=== PATIENT | female | born 1970 | race American Indian/Alaskan Native ===

== ENCOUNTER 2016-06-09 18:43 | Emergency (ER) | payer SELFPAY ==
[2016-06-09 19:44] VITALS: BP 118/71
[2016-06-09] MEDS ORDERED: ATROVENT IH ONE (19:55)
[2016-06-09] MEDS ORDERED: DELTASONE PO ONE (19:55)
[2016-06-09] MEDS ORDERED: PROVENTIL IH ONE (19:55)
[2016-06-09] MEDS ORDERED: BENADRYL PO ONE (19:56)
[2016-06-09] MEDS ORDERED: PEPCID PO ONE (19:56)
--- NOTE | 2016-06-09 20:01 | Emergency Department Report ---
HPI - General Chief Complaint: Dyspnea/Respdistress Time Seen by Provider: 06/09/16 19:48 - HPI HPI: Room 7 The patient is a 46-year-old female presenting with a chief complaint of shortness of breath. The patient states she was in a customer's home approximately noon today for 1 hour when she began developing shortness of breath and a cough productive of clear sputum. Patient states she also had rhinorrhea. The patient states she went home but symptoms did not improve so she came to the ED for treatment. The patient states little over a month ago she had a similar episode at the same customer's house. Patient Was states she does not short of breath. Patient denies any history of fever or sick contacts. Patient denies itching Location: Lungs Duration: [see above] Quality: Shortness of Breath Severity: Moderate Modifying factors: [see above] Context: [see above] Mode of transportation: [not driving] ED Past Medical Hx - Past Medical History Previous Medical History?: No - Surgical History Past Surgical History?: No Additional Surgical History: Bilateral tubal ligation - Family History Family history: no significant - Social History Smoking Status: Never Smoker Substance Use Type: Alcohol (occasional), Non Opiate Pain, Prescribed - Medications Home Medications: Home Medications Medication Instructions Recorded Confirmed Last Taken Type Azithromycin [Zithromax Z-BESSIE] 250 mg PO DAILY #6 tablet 12/31/15 06/09/1606/09 Rx ALBUTEROL Inhaler [ProAir HFA 1 puff IH Q4H #1 inha 06/09/16 Unknown Rx Inhaler] Famotidine [Pepcid] 20 mg PO BID #6 tablet 06/09/16 Unknown Rx Prednisone [predniSONE 10 mg 10 mg PO .TAPER #1 tab.ds.pk 06/09/16 Unknown Rx (6-Day Pack, 21 Tabs)] diphenhydrAMINE [Benadryl CAP] 50 mg PO Q6HR #24 capsule 06/09/16 Unknown Rx ED Review of Systems ROS: Stated complaint: FATMATA Other details as noted in HPI Comment: All other systems reviewed and negative Constitutional: denies: fever Eyes: denies: eye pain, eye discharge, vision change ENT: other (rhinorrhea) Respiratory: cough, shortness of breath Cardiovascular: denies: chest pain, palpitations Endocrine: no symptoms reported Gastrointestinal: denies: abdominal pain, nausea, diarrhea Genitourinary: denies: urgency, dysuria, discharge Musculoskeletal: denies: back pain, joint swelling, arthralgia Skin: denies: rash, lesions Neurological: denies: headache, weakness, paresthesias Psychiatric: denies: anxiety, depression Hematological/Lymphatic: denies: easy bleeding, easy bruising Physical Exam - Physical Exam Vital Signs: Vital Signs 06/09/16 19:31 Temperature 97.8 F Pulse Rate 106 H Respiratory 18 Rate Blood Pressure 118/71 Blood Pressure 118/71 [Left] O2 Sat by Pulse 97 Oximetry Physical Exam: GENERAL: The patient is well-developed well-nourished female lying on stretcher not appearing to be in acute distress. [] HEENT: Normocephalic. Atraumatic. Extraocular motions are intact. Patient has moist mucous membranes. No stridor NECK: Supple. No stridor CHEST/LUNGS: Trace expiratory wheezing auscultated. There is no respiratory distress noted. HEART/CARDIOVASCULAR: Regular. There is no tachycardia. There is no gallop rub or murmur. SKIN: There is no rash. There is no edema. There is no diaphoresis. NEURO: The patient is awake, alert, and oriented. The patient is cooperative. The patient has normal speech MUSCULOSKELETAL: There is no evidence of acute injury. ED Course Vital Signs 06/09/16 19:31 Temperature 97.8 F Pulse Rate 106 H Respiratory 18 Rate Blood Pressure 118/71 Blood Pressure 118/71 [Left] O2 Sat by Pulse 97 Oximetry - Reevaluation(s) Reevaluation #1: 06/09/16 21:06 Patient states she feels improved ED Medical Decision Making - Differential Diagnosis reactive airway disease Critical care attestation.: If time is entered above; I have spent that time in minutes in the direct care of this critically ill patient, excluding procedure time. ED Disposition Clinical Impression: Reactive airway disease, Shortness of breath Disposition: DISCHARGED TO HOME OR SELFCARE Is pt being admited?: No Does the pt Need Aspirin: No Condition: Stable Instructions: Reactive Airways Disease (ED) Additional Instructions: Return to the emergency department immediately should you develop worsening symptoms, fever, inability to tolerate food or liquid or any other concerns. Prescriptions: ALBUTEROL Inhaler [ProAir HFA Inhaler] 1 puff IH Q4H #1 inha Famotidine [Pepcid] 20 mg PO BID #6 tablet Prednisone [predniSONE 10 mg (6-Day Pack, 21 Tabs)] 10 mg PO .TAPER #1 tab.ds.pk diphenhydrAMINE [Benadryl CAP] 50 mg PO Q6HR #24 capsule Referrals: PRIMARY CARE, [Primary Care Provider] - 3-5 Days CLAUDIA MARTINEZ MD [Staff Physician] - 3-5 Days (Dr Martinez is an network support administrator. Please follow with her further evaluation) Time of Disposition: 21:05
== END 2016-06-09 21:53 | disposition home or self-care (01) ==
LOC: ED 18:43
DX: J45.909 Unspecified asthma, uncomplicated (principal); R06.02 Shortness of breath
CPT/HCPCS: 94640; 99283; J7512

== ENCOUNTER 2016-09-04 10:11 | Emergency (ER) | payer SELFPAY ==
[2016-09-04 11:50] VITALS: BP 152/97
== END 2016-09-04 21:50 ==
LOC: ED 10:11
DX: Z76.0 Encounter for issue of repeat prescription (principal); Z53.21 Procedure and treatment not carried out due to patient leaving prior to being seen by health care provider

== ENCOUNTER 2017-07-14 04:19 | Emergency (ER) | payer SELFPAY | END 2017-07-14 04:20 | disposition left against medical advice (07) | LOC: ED 04:19 | DX: J45.909 Unspecified asthma, uncomplicated (principal); Z53.21 Procedure and treatment not carried out due to patient leaving prior to being seen by health care provider ==

== ENCOUNTER 2017-09-24 00:29 | Emergency (ER) | payer SELFPAY ==
[2017-09-24] MEDS ORDERED: DUONEB *Not for PRN Use IH ONE ×2 (00:34→00:59)
[2017-09-24 00:59] VITALS: BP 142/78
--- NOTE | 2017-09-24 03:40 | Emergency Department Report ---
Upper Respiratory HPI - HPI Chief Complaint: Adult Asthma Stated Complaint: ASTHMA Time Seen by Provider: 09/24/17 03:33 URI Symptoms: Rhinorrhea: Yes, Sore Throat: No, Ear Pain: No, Cough: Yes, Shortness of Breath: Yes, Sick Contacts: No, Unable to Take Fluids: No, Urine Output Abnormal: No, Listless Behavior: No - Home Meds and Allergies Home Medications: Previous Rx's Medication Instructions Recorded Last Taken Type Azithromycin [Zithromax Z-BESSIE] 250 mg PO DAILY #6 tablet 12/31/15 06/09/16 Rx ALBUTEROL Inhaler [ProAir HFA 1 puff IH Q4H #1 inha 06/09/16 Unknown Rx Inhaler] Famotidine [Pepcid] 20 mg PO BID #6 tablet 06/09/16 Unknown Rx Prednisone [predniSONE 10 mg 10 mg PO .TAPER #1 tab.ds.pk 06/09/16 Unknown Rx (6-Day Pack, 21 Tabs)] diphenhydrAMINE [Benadryl CAP] 50 mg PO Q6HR #24 capsule 06/09/16 Unknown Rx ALBUTEROL Inhaler [ProAir HFA 2 puff IH QID PRN #1 inhalation 09/24/17 Unknown Rx Inhaler] Azithromycin [Zithromax Z-BESSIE] 250 mg PO DAILY #6 tab 09/24/17 Unknown Rx predniSONE [Deltasone] 40 mg PO QDAY #10 tab 09/24/17 Unknown Rx Allergies/Adverse Reactions: Allergies Allergy/AdvReac Type Severity Reaction Status Date / Time No Known Allergies Allergy Verified 09/04/16 11:45 ED Review of Systems ROS: Stated complaint: ASTHMA Other details as noted in HPI Constitutional: denies: chills, fever Eyes: denies: eye pain, eye discharge, vision change ENT: congestion. denies: ear pain, throat pain Respiratory: cough, shortness of breath, wheezing Cardiovascular: denies: chest pain, palpitations Endocrine: no symptoms reported Gastrointestinal: denies: abdominal pain, nausea, diarrhea Genitourinary: denies: urgency, dysuria, discharge Musculoskeletal: denies: back pain, joint swelling, arthralgia Skin: denies: rash, lesions Neurological: denies: headache, weakness, paresthesias Psychiatric: denies: anxiety, depression Hematological/Lymphatic: denies: easy bleeding, easy bruising ED Past Medical Hx - Past Medical History Hx Asthma: Yes - Surgical History Additional Surgical History: Bilateral tubal ligation - Social History Smoking Status: Never Smoker Substance Use Type: None - Medications Home Medications: Home Medications Medication Instructions Recorded Confirmed Last Taken Type Azithromycin [Zithromax Z-BESSIE] 250 mg PO DAILY #6 tablet 12/31/15 06/09/1606/09 Rx ALBUTEROL Inhaler [ProAir HFA 1 puff IH Q4H #1 inha 06/09/16 Unknown Rx Inhaler] Famotidine [Pepcid] 20 mg PO BID #6 tablet 06/09/16 Unknown Rx Prednisone [predniSONE 10 mg 10 mg PO .TAPER #1 tab.ds.pk 06/09/16 Unknown Rx (6-Day Pack, 21 Tabs)] diphenhydrAMINE [Benadryl CAP] 50 mg PO Q6HR #24 capsule 06/09/16 Unknown Rx ALBUTEROL Inhaler [ProAir HFA 2 puff IH QID PRN #1 inhalation 09/24/17 Unknown Rx Inhaler] Azithromycin [Zithromax Z-BESSIE] 250 mg PO DAILY #6 tab 09/24/17 Unknown Rx predniSONE [Deltasone] 40 mg PO QDAY #10 tab 09/24/17 Unknown Rx ED Bronchiolitis Physical Exam - Exam General: Vital signs noted. No distress. Alert and acting appropriately. HEENT: Yes Pharyngeal Erythema, Yes Rhinorrhea, No Conjuctival Injection, No Dry Mucous Membranes Ear: Neither TM Bulge, Neither TM Erythema, Neither EAC Discharge Neck: No Adenopathy, No Rigidity Lungs: Yes Good Air Exchange, Yes Wheezes, Yes Cough, No Clear Lung Sounds, No Stridor, No Nasal Flaring, No Retractions, No Use of Accessory Muscles Heart: Yes Regular, No Murmur Abdomen: Yes Normal Bowel Sounds, No Tenderness, No Peritoneal Signs Skin: No Rash, No Eczema Neurologic: Alert and oriented, no deficits. Musculoskeletal: Unremarkable. ED Physical Exam - General Limitations: No Limitations General appearance: alert, in no apparent distress - Head Head exam: Present: atraumatic, normocephalic - Eye Eye exam: Present: normal appearance - ENT ENT exam: Present: mucous membranes moist - Neck Neck exam: Present: normal inspection, full ROM. Absent: tenderness, lymphadenopathy, thyromegaly - Respiratory Respiratory exam: Present: normal lung sounds bilaterally, wheezes (mild exp ). Absent: respiratory distress, rales, rhonchi, stridor, chest wall tenderness - Cardiovascular Cardiovascular Exam: Present: regular rate, normal rhythm. Absent: systolic murmur, diastolic murmur, rubs, gallop - GI/Abdominal GI/Abdominal exam: Present: soft, normal bowel sounds. Absent: distended, tenderness, guarding, rebound, rigid, organomegaly, mass, bruit, pulsatile mass , hernia - Rectal Rectal exam: Present: deferred - Extremities Exam Extremities exam: Present: normal inspection - Back Exam Back exam: Present: normal inspection - Neurological Exam Neurological exam: Present: alert, oriented X3 - Psychiatric Psychiatric exam: Present: normal affect, normal mood - Skin Skin exam: Present: warm, dry, intact, normal color. Absent: rash ED Course Vital Signs 09/24/17 00:52 Temperature 99.1 F Pulse Rate 104 H Respiratory 18 Rate Blood Pressure 142/78 O2 Sat by Pulse 96 Oximetry ED Medical Decision Making - Medical Decision Making Patient is a 47-year-old female with history of asthma patient states shortness of breath and wheezing 3 days however out of albuterol inhaler patient states all symptoms are relieved after neb treatment given in the ED exam patient and O 3 patient appears nontoxic well-hydrated well- nourished accessory muscle use patient has ambulated ED and return room without increase shortness of breath O2 sat is 96% on room air plan at this time DC'd to home in stable condition refill albuterol inhaler short burst of prednisone and Z-Bessie follow with PCP in 2-3 days patient will return to ED if symptoms worsen patient verbalizes understanding and agreement with discharge plan to home Critical care attestation.: If time is entered above; I have spent that time in minutes in the direct care of this critically ill patient, excluding procedure time. ED Disposition Clinical Impression: Bronchitis Asthma Qualifiers: Asthma severity: mild Asthma persistence: intermittent Asthma complication type : with acute exacerbation Qualified Code(s): J45.21 - Mild intermittent asthma with (acute) exacerbation Disposition: DC- TO HOME OR SELFCARE Is pt being admited?: No Does the pt Need Aspirin: No Condition: Good Instructions: Chronic Bronchitis (ED), Asthma (ED) Prescriptions: ALBUTEROL Inhaler [ProAir HFA Inhaler] 2 puff IH QID PRN #1 inhalation PRN Reason: Shortness Of Breath Azithromycin [Zithromax Z-BESSIE] 250 mg PO DAILY #6 tab predniSONE [Deltasone] 40 mg PO QDAY #10 tab Referrals: [facility] [Outside] - 3-5 Days Forms: Work/School Release Form(ED) Time of Disposition: 03:41
== END 2017-09-24 03:50 | disposition home or self-care (01) ==
LOC: ED 00:29
DX: J45.21 Mild intermittent asthma with (acute) exacerbation (principal); F17.200 Nicotine dependence, unspecified, uncomplicated; Z98.51 Tubal ligation status
CPT/HCPCS: 94640; 96372; 99282; J2930

== ENCOUNTER 2018-07-30 09:54 | Emergency (ER) | payer BC ==
--- NOTE | 2018-07-30 13:11 | XRay Report ---
AP AND LATERAL SOFT TISSUES OF THE NECK: History: Neck pain, rule out foreign body. The contour of the upper airway appears within normal limits. The epiglottis is not enlarged. No prevertebral soft tissue swelling is apparent. No mass density or foreign body is evident. IMPRESSION: Unremarkable exam. No radiopaque foreign body is identified in the upper aerodigestive tract.
--- NOTE | 2018-07-30 13:11 | XRay Report ---
ROUTINE CHEST, TWO VIEWS: HISTORY: chest pain, rule out foreign body. The trachea, heart, mediastinal contour, lung hilliard and bony thorax are unremarkable. Chronic granulomatous findings are noted. No radiopaque foreign body is identified in the chest. IMPRESSION: Unremarkable chest x-ray.
--- NOTE | 2018-07-30 14:18 | Gastroenterology Consultation ---
<MIKY LOYA - Last Filed: 07/30/18 14:19> History of Present Illness - Reason for Consult Consult date: 07/30/18 foreign body Requesting physician: YVONNE PIRES - History of Present Illness Patient is a 48 y/o female with PMH of asthma who presented to ED with c/o a possible foreign body to which GI has been consulted. She reports eating a piece of chicken breast this morning around 8:30 or 9 and states she feels like she swallowed a piece of bone, to which she believes is still stuck in her throat due to continued pain with swallowing. No prior episodes of dysphagia. Denies fever, CP, SOB, abd pain, N/V, heartburn/regurgitation, signs of bleeding or lower GI symptoms. Soft tissue neck x-ray upon admission was negative. No previous EGD. Past History Past Medical History: other (asthma) Past Surgical History: Other (tubal ligation) Social history: other (alcohol, marijuana). denies: smoking Medications and Allergies Allergies Allergy/AdvReac Type Severity Reaction Status Date / Time No Known Allergies Allergy Verified 07/30/18 09:54 Home Medications Medication Instructions Recorded Confirmed Last Taken Type Azithromycin [Zithromax Z-BESSIE] 250 mg PO DAILY #6 tablet 12/31/15 06/09/16 06/09/16 Rx ALBUTEROL Inhaler (OR & NICU) 1 puff IH Q4H #1 inha 06/09/16 Unknown Rx [ProAir HFA Inhaler] Famotidine [Pepcid] 20 mg PO BID #6 tablet 06/09/16 Unknown Rx Prednisone [predniSONE 10 mg 10 mg PO .TAPER #1 tab.ds.pk 06/09/16 Unknown Rx (6-Day Pack, 21 Tabs)] diphenhydrAMINE [Benadryl CAP] 50 mg PO Q6HR #24 capsule 06/09/16 Unknown Rx ALBUTEROL Inhaler (OR & NICU) 2 puff IH QID PRN #1 inhalation 09/24/17 Unknown Rx [ProAir HFA Inhaler] Azithromycin [Zithromax Z-BESSIE] 250 mg PO DAILY #6 tab 09/24/17 Unknown Rx predniSONE [Deltasone] 40 mg PO QDAY #10 tab 09/24/17 Unknown Rx Active Meds: medications reviewed/updated as required Review of Systems - Review of Systems All systems: negative Gastrointestinal: other (odynophagia, possible foreign body) Exam - Constitutional Vital Signs: Temp Pulse Resp BP Pulse Ox 98.2 F 105 H 14 116/74 96 07/30/18 10:06 07/30/18 10:06 07/30/18 10:06 07/30/18 10:06 07/30/18 10:06 General appearance: no acute distress - EENT Eyes: PERRL, EOM intact ENT: hearing intact - Respiratory Respiratory: bilateral: CTA - Cardiovascular Rhythm: other (tachycardia) - Gastrointestinal General gastrointestinal: Present: soft, non-tender, non-distended, normal bowel sounds - Neurologic Neurological: alert and oriented x3 Assessment and Plan 1.possible foreign body 2.odynophagia -soft tissue neck negative -EGD today -Keep NPO -continue supportive care -will follow <BETO BRAR - Last Filed: 07/30/18 14:31> Exam - Constitutional Vital Signs: Temp Pulse Resp BP Pulse Ox 98.2 F 105 H 14 116/74 96 07/30/18 10:06 07/30/18 10:06 07/30/18 10:06 07/30/18 10:06 07/30/18 10:06 Assessment and Plan Pt seen and examined. Agree with note above. EGD to r/o foreign body in esophagus.
--- NOTE | 2018-07-30 14:19 | Emergency Department Report ---
ED General Adult HPI - General Chief complaint: Skin/Abscess/Foreign Body Stated complaint: BONE IN THROAT/ASTHMA Time Seen by Provider: 07/30/18 12:33 Source: patient Mode of arrival: Ambulatory Limitations: No Limitations - History of Present Illness Initial comments: This is a 48-year-old female nontoxic, well nourished in appearance, no acute signs of distress presents to the ED with c/o of sensation of foreign body in throat. Patient stated she was getting chicken with bone and believes that she has chicken bone stuck in her throat. Patient started throat with pain with swallowing. Patient denies any abdominal pain, chest pain, shortness of breath, headache, stiff neck, numbness or tingling. Patient denies any allergies or significant past medical history. -: This morning Radiation: non-radiation Severity scale (0 -10): 8 Quality: aching Consistency: constant Improves with: none Worsens with: none Associated Symptoms: denies other symptoms. denies: confusion, chest pain, cough, diaphoresis, fever/chills, headaches, loss of appetite, malaise, nausea/vomiting, rash, seizure, shortness of breath, syncope, weakness Treatments Prior to Arrival: none - Related Data Previous Rx's Medication Instructions Recorded Last Taken Type Azithromycin [Zithromax Z-BESSIE] 250 mg PO DAILY #6 tablet 12/31/15 06/09/16 Rx ALBUTEROL Inhaler (OR & NICU) 1 puff IH Q4H #1 inha 06/09/16 Unknown Rx [ProAir HFA Inhaler] Famotidine [Pepcid] 20 mg PO BID #6 tablet 06/09/16 Unknown Rx Prednisone [predniSONE 10 mg 10 mg PO .TAPER #1 tab.ds.pk 06/09/16 Unknown Rx (6-Day Pack, 21 Tabs)] diphenhydrAMINE [Benadryl CAP] 50 mg PO Q6HR #24 capsule 06/09/16 Unknown Rx ALBUTEROL Inhaler (OR & NICU) 2 puff IH QID PRN #1 inhalation 09/24/17 Unknown Rx [ProAir HFA Inhaler] Azithromycin [Zithromax Z-BESSIE] 250 mg PO DAILY #6 tab 09/24/17 Unknown Rx predniSONE [Deltasone] 40 mg PO QDAY #10 tab 09/24/17 Unknown Rx ALBUTEROL Inhaler(NF) [VENTOLIN 1 puff IH Q4-6H PRN #1 inha 07/30/18 Unknown Rx Inhaler(NF)] Ibuprofen [Motrin] 600 mg PO Q8H PRN #20 tablet 07/30/18 Unknown Rx Allergies Allergy/AdvReac Type Severity Reaction Status Date / Time No Known Allergies Allergy Verified 07/30/18 09:54 ED Review of Systems ROS: Stated complaint: BONE IN THROAT/ASTHMA Other details as noted in HPI Constitutional: denies: chills, fever Eyes: denies: eye pain, eye discharge, vision change ENT: denies: ear pain, throat pain Respiratory: denies: cough, shortness of breath, wheezing Cardiovascular: denies: chest pain, palpitations Endocrine: no symptoms reported Gastrointestinal: denies: abdominal pain, nausea, diarrhea Genitourinary: denies: urgency, dysuria, discharge Musculoskeletal: denies: back pain, joint swelling, arthralgia Skin: denies: rash, lesions Neurological: denies: headache, weakness, paresthesias Psychiatric: denies: anxiety, depression Hematological/Lymphatic: denies: easy bleeding, easy bruising ED Past Medical Hx - Past Medical History Hx Asthma: Yes - Surgical History Additional Surgical History: Bilateral tubal ligation - Social History Smoking Status: Never Smoker Substance Use Type: Alcohol, Marijuana - Medications Home Medications: Home Medications Medication Instructions Recorded Confirmed Last Taken Type Azithromycin [Zithromax Z-BESSIE] 250 mg PO DAILY #6 tablet 12/31/15 06/09/16 06/09/16 Rx ALBUTEROL Inhaler (OR & NICU) 1 puff IH Q4H #1 inha 06/09/16 Unknown Rx [ProAir HFA Inhaler] Famotidine [Pepcid] 20 mg PO BID #6 tablet 06/09/16 Unknown Rx Prednisone [predniSONE 10 mg 10 mg PO .TAPER #1 tab.ds.pk 06/09/16 Unknown Rx (6-Day Pack, 21 Tabs)] diphenhydrAMINE [Benadryl CAP] 50 mg PO Q6HR #24 capsule 06/09/16 Unknown Rx ALBUTEROL Inhaler (OR & NICU) 2 puff IH QID PRN #1 inhalation 09/24/17 Unknown Rx [ProAir HFA Inhaler] Azithromycin [Zithromax Z-BESSIE] 250 mg PO DAILY #6 tab 04/23/18 Unknown Rx predniSONE [Deltasone] 40 mg PO QDAY #10 tab 09/24/17 Unknown Rx ALBUTEROL Inhaler(NF) [VENTOLIN 1 puff IH Q4-6H PRN #1 inha 07/30/18 Unknown Rx Inhaler(NF)] Ibuprofen [Motrin] 600 mg PO Q8H PRN #20 tablet 07/30/18 Unknown Rx ED Physical Exam - General Limitations: No Limitations General appearance: alert, in no apparent distress - Head Head exam: Present: atraumatic, normocephalic - ENT ENT exam: Present: normal exam, normal orophraynx, other (no foreign body noted) - Neck Neck exam: Present: normal inspection, full ROM. Absent: tenderness, meningismus, lymphadenopathy - GI/Abdominal GI/Abdominal exam: Present: soft, normal bowel sounds. Absent: distended, tenderness, guarding, rebound, rigid, diminished bowel sounds - Extremities Exam Extremities exam: Present: normal inspection, full ROM - Back Exam Back exam: Present: normal inspection, full ROM - Neurological Exam Neurological exam: Present: alert, oriented X3 - Psychiatric Psychiatric exam: Present: normal affect, normal mood - Skin Skin exam: Present: warm, dry, intact, normal color. Absent: rash ED Course Vital Signs 07/30/18 07/30/18 07/30/18 10:06 14:10 14:37 Temperature 98.2 F 98.1 F 98.1 F Pulse Rate 105 H 80 77 Respiratory 14 16 18 Rate Blood Pressure 128/73 112/68 Blood Pressure 116/74 [Right] O2 Sat by Pulse 96 99 100 Oximetry 07/30/18 07/30/18 07/30/18 14:47 14:52 15:05 Temperature 98.1 F Pulse Rate 80 74 80 Respiratory 16 13 14 Rate Blood Pressure 128/73 113/68 118/67 Blood Pressure [Right] O2 Sat by Pulse 99 100 98 Oximetry - Reevaluation(s) Reevaluation #1: 07/30/18 14:20 Patient is speaking in full sentences with no signs of distress noted. - Consultations Consultation #1: 07/30/18 14:20 Patient has been consulted with Dr. Friedman ([facility]) about patient history, physical exam, and xray results and stated for patient to be NPO and will perform EGD. ED Medical Decision Making - Medical Decision Making This is a 48-year-old female that presents with foreign body sensation. Patient is stable and was examined by me. X-rays are unremarkable and dictated by radiologist. Vision had a procedure for EGD by Dr. Friedman. Patient was instructed to Follow-up with a primary care/GI doctor in 3-5 days or if symptoms worsen and continue return to emergency room as soon as possible. At time of discharge, the patient does not seem toxic or ill in appearance. No acute signs of distress noted. Patient agrees to discharge treatment plan of care. No further questions noted by the patient. At discharge patient requested for albuterol inhaler refill. Critical care attestation.: If time is entered above; I have spent that time in minutes in the direct care of this critically ill patient, excluding procedure time. ED Disposition Clinical Impression: Foreign body sensation in throat Disposition: DC-01 TO HOME OR SELFCARE Is pt being admited?: No Does the pt Need Aspirin: No Condition: Stable Additional Instructions: Follow-up with a primary care/GI doctor in 3-5 days or if symptoms worsen and continue return to emergency room as soon as possible. Prescriptions: ALBUTEROL Inhaler(NF) [VENTOLIN Inhaler(NF)] 1 puff IH Q4-6H PRN #1 inha PRN Reason: shortness of breathe Ibuprofen [Motrin] 600 mg PO Q8H PRN #20 tablet PRN Reason: Pain Referrals: PRIMARY MD RAVI [Referring] - 3-5 Days LAURA SKINNER MD [Staff Physician] - 3-5 Days [facility] [Provider Group] - 3-5 Days [facility] [Outside] - 3-5 Days [facility] [Outside] - 3-5 Days Forms: Work/School Release Form(ED)
[2018-07-30] MEDS ORDERED: DIPRIVAN 10 MG/ML IV ONE ×3 (14:23)
--- NOTE | 2018-07-30 14:27 | Anesthesia Consultation ---
Anesthesia Consult and Med Hx Date of service: 07/30/18 - Airway Anesthetic Teeth Evaluation: Poor (loose bilateral lower molars) ROM Head & Neck: Adequate Mental/Hyoid Distance: Adequate Mallampati Class: Class III Intubation Access Assessment: Possibly Difficult - Pulmonary Exam CTA: Yes - Cardiac Exam Cardiac Exam: RRR - Pre-Operative Health Status ASA Pre-Surgery Classification: ASA2 Proposed Anesthetic Plan: MAC - Pulmonary Hx Smoking: No Hx Asthma: Yes (Daily inhaler use. Asymptomatic today.) SOB: No COPD: No Home Oxygen Therapy: No - Cardiovascular System Hx Hypertension: No Hx Heart Attack/AMI: No Hx Percutaneous Transluminal Coronary Angioplasty (PTCA): No Hx Cardia Arrhythmia: No - Central Nervous System Hx Seizures: No CVA: No Hx Back Pain: No - Gastrointestinal Hx Gastroesophageal Reflux Disease: No - Endocrine Hx Renal Disease: No Hx Liver Disease: No Hx Insulin Dependent Diabetes: No Hx Non-Insulin Dependent Diabetes: No Hx Thyroid Disease: No - Other Systems Hx Obesity: No - Additional Comments Anesthesia Medical History Comments: No hx anesthetic complications.
--- NOTE | 2018-07-30 14:27 | Anesthesia Day of Surgery ---
Anesthesia Day of Surgery - Day of Surgery Patient Examined: Yes Patient H&P Reviewed: Yes Patient is NPO: Yes (no associated nausea/vomiting)
--- NOTE | 2018-07-30 14:39 | Operative Report ---
Operative Report Operative Report: Esophagogastroduodenoscopy Procedure Note Date of procedure: 07/30/2018 Endoscopist: Grzegorz Friedman Pre-op diagnosis: Odynophagia, dysphagia Post-op diagnosis: Normal esophagus; retained food in stomach Anesthesia: MAC Complications: No immediate complications Estimated blood loss: none Procedure: After consent was obtained, the patient was placed in the left lateral decubitus position. The fujinon endoscope was inserted into the patient's mouth under direct vision, and advanced into the stomach (intention to 2nd portion of duodenum, however procedure aborted due to retained food in stomach) The patient tolerated the procedure well. The views of the mucosa were good in the esophagus. Patient's vital signs were monitored continuously throughout the procedure. Findings: The esophagus appeared normal. There was no retained foreign body in the esophagus. There was a large amount of retained solid food in the stomach. The endoscope was not advanced due to risks of aspiration. Impression: 1. No retained foreign body in the esophagus Recommendations: -patient can be discharged home from GI stand point
[2018-07-30] MEDS ORDERED: NACL 0.9% 1000 ML 1,000 ML ONE (15:07)
[2018-07-30 16:06] VITALS: BP 112/68
== END 2018-07-30 16:06 | disposition home or self-care (01) ==
LOC: ED 09:54
DX: T18.8XXA Foreign body in other parts of alimentary tract, initial encounter (principal); X58.XXXA Exposure to other specified factors, initial encounter; Y93.89 Activity, other specified; Y99.8 Other external cause status; Y92.89 Other specified places as the place of occurrence of the external cause; J45.909 Unspecified asthma, uncomplicated; F12.10 Cannabis abuse, uncomplicated; Z98.51 Tubal ligation status
CPT/HCPCS: 43247; 70360; 71046; 81025; 99283; J2704; J7030

== ENCOUNTER 2018-11-09 05:15 | Emergency (ER) | payer BC ==
[2018-11-09 05:24] VITALS: BP 114/72
--- NOTE | 2018-11-09 05:57 | XRay Report ---
PROCEDURE: XR CHEST 1V AP TECHNIQUE: Chest radiograph single view. HISTORY: Chest Pain COMPARISONS: None . FINDINGS: Heart: Normal. Mediastinum/Vessels: Normal. Lungs/Pleural space: Normal. Bony thorax: No acute osseous abnormality. Life support devices: None. IMPRESSION: No acute cardiopulmonary abnormality. This document is electronically signed by Fadmuo Alvarez DO., November 09 2018 05:55:21 AM ET
== END 2018-11-09 07:33 ==
LOC: ED 05:15
DX: R07.9 Chest pain, unspecified (principal); Z53.21 Procedure and treatment not carried out due to patient leaving prior to being seen by health care provider
CPT/HCPCS: 71045; 93005; 93010